=== PATIENT | female | born 1940 | race Asian ===

== ENCOUNTER 2023-10-12 09:44 | Emergency (ER) | payer OTHER, BC ==
[~2023-10-12] VITALS: Ht 152.4 cm; Wt 61.2 kg
[~2023-10-12 09:44] MED LIST: AMLO5TAB4 PO; DEXL60CA6 PO; DONE5TAB33 PO; HYDR25TA86 PO; LINA145C PO; LIPA1CAP23 PO; OLME40TA18 PO; SIMV10TA97 PO
[2023-10-12 09:45] VITALS: BP_SYST 134; PULSE 74; RESP 17; TEMP 98.2; O2SAT 96
[2023-10-12 10:37] LABS: BASOPHILS % (AUTO) 0.3 % (0.0-2.0); EOSINOPHILS # (AUTO) 0.1 K/uL (0.0-0.4); EOSINOPHILS % (AUTO) 0.9 % (0.0-4.0); HEMATOCRIT 35.1 % (36-48); HEMOGLOBIN 11.7 g/dL (12.0-16.0); LYMPHOCYTES # (AUTO) 1.3 K/uL (1.0-5.5); LYMPHOCYTES % (AUTO) 18.2 % (20.5-51.5); MEAN CORPUSCULAR HEMOGLOBIN 30 pg (27-31); MEAN CORPUSCULAR HGB CONC 33 % (32-36); MEAN CORPUSCULAR VOLUME 91 fL (79.0-98.0); MONOCYTES # (AUTO) 0.6 K/uL (0.0-1.0); MONOCYTES % (AUTO) 8.9 % (1.7-9.3); NEUTROPHILS % (AUTO) 71.7 % (40.0-70.0); PLATELET COUNT (AUTO) 270 K/uL (130-430); RED BLOOD CELL COUNT(AUTO) 3.88 MIL/uL (4.2-6.2); RED CELL DISTRIBUTION WIDTH 13.7 % (9.0-15.0)
[2023-10-12 10:53] LABS: INR 0.9 (0.8-1.2); PROTHROMBIN TIME 9.5 SECS (9.5-12.5)
[2023-10-12] MEDS ORDERED: AMLO5TAB4 PO (11:10)
[2023-10-12 11:11] LABS: ALANINE AMINOTRANSFERASE 20 U/L (12-78); ALBUMIN 3.5 g/dL (3.4-4.8); AMYLASE 63 U/L (0-100); ANION GAP 9 (5-15); ASPARTATE AMINOTRANSFERASE 16 U/L (10-37); BILIRUBIN,DIRECT 0.1 mg/dL (0.0-0.3); CALCIUM 8.9 mg/dL (8.4-11.0); CARBON DIOXIDE 25 mmol/L (23-29); CHLORIDE 105 mmol/L (98-107); CREATININE 0.83 mg/dL (0.55-1.30); GLUCOSE 110 mg/dL (74-106); LIPASE 44 U/L (16-77); POTASSIUM 3.5 mmol/L (3.5-5.1); SODIUM SERUM 139 mmol/L (136-145); TOTAL BILIRUBIN 0.4 mg/dL (0.0-1.0); TOTAL PROTEIN, SERUM 6.8 g/dL (6.4-8.3); UREA NITROGEN, BLOOD 25 mg/dL (8-21)
[2023-10-12] MEDS ORDERED: HYG25 PO (11:15)
[2023-10-12] MEDS ORDERED: OMEP-268 PO (12:11)
[2023-10-12 12:35] VITALS: BP_SYST 141; PULSE 78; RESP 14; O2SAT 99
== END 2023-10-12 12:39 | disposition home or self-care (01) ==
LOC: SED 09:44
DX: K62.5 Hemorrhage of anus and rectum (principal); R10.13 Epigastric pain; I10 Essential (primary) hypertension; Z79.899 Other long term (current) drug therapy; Z79.2 Long term (current) use of antibiotics
CPT/HCPCS: 36415; 80048; 80076; 82150; 83605; 83690; 85025; 85610; 85730; 86886; 86900; 86901; 93005; 99284

== ENCOUNTER 2023-10-17 10:20 | Emergency (ER) | payer OTHER, BC ==
[~2023-10-17] VITALS: Ht 152.4 cm; Wt 61.2 kg
[~2023-10-17 10:20] MED LIST changes: +HYG25 PO; +OMEP-268 PO
[2023-10-17 10:24] VITALS: BP_SYST 138; PULSE 73; RESP 16; TEMP 97.9; O2SAT 96
[2023-10-17 10:53] LABS: BASOPHILS % (AUTO) 0.7 % (0.0-2.0); EOSINOPHILS # (AUTO) 0.1 K/uL (0.0-0.4); EOSINOPHILS % (AUTO) 0.9 % (0.0-4.0); HEMATOCRIT 33.4 % (36-48); HEMOGLOBIN 11.1 g/dL (12.0-16.0); LYMPHOCYTES # (AUTO) 1.7 K/uL (1.0-5.5); LYMPHOCYTES % (AUTO) 26.1 % (20.5-51.5); MEAN CORPUSCULAR HEMOGLOBIN 30 pg (27-31); MEAN CORPUSCULAR HGB CONC 33 % (32-36); MEAN CORPUSCULAR VOLUME 91 fL (79.0-98.0); MONOCYTES # (AUTO) 0.6 K/uL (0.0-1.0); MONOCYTES % (AUTO) 9.7 % (1.7-9.3); NEUTROPHILS % (AUTO) 62.6 % (40.0-70.0); PLATELET COUNT (AUTO) 315 K/uL (130-430); RED BLOOD CELL COUNT(AUTO) 3.68 MIL/uL (4.2-6.2); RED CELL DISTRIBUTION WIDTH 13.4 % (9.0-15.0); WHITE BLOOD COUNT (AUTO) 6.4 K/uL (4.8-10.8)
[2023-10-17 11:13] LABS: ALANINE AMINOTRANSFERASE 22 U/L (12-78); ALBUMIN 3.5 g/dL (3.4-4.8); AMYLASE 59 U/L (0-100); ANION GAP 11 (5-15); ASPARTATE AMINOTRANSFERASE 18 U/L (10-37); BILIRUBIN,DIRECT 0.1 mg/dL (0.0-0.3); CALCIUM 8.9 mg/dL (8.4-11.0); CARBON DIOXIDE 25 mmol/L (23-29); CHLORIDE 100 mmol/L (98-107); CREATININE 1.04 mg/dL (0.55-1.30); GLUCOSE 142 mg/dL (74-106); INR 0.9 (0.8-1.2); LIPASE 49 U/L (16-77); POTASSIUM 3.8 mmol/L (3.5-5.1); PROTHROMBIN TIME 9.3 SECS (9.5-12.5); SODIUM SERUM 136 mmol/L (136-145); TOTAL BILIRUBIN 0.3 mg/dL (0.0-1.0); TOTAL PROTEIN, SERUM 6.8 g/dL (6.4-8.3); UREA NITROGEN, BLOOD 21 mg/dL (8-21)
[2023-10-17] MEDS ORDERED: OMEP20CA15 PO (11:24)
[2023-10-17 11:33] VITALS: BP_SYST 122; PULSE 69; RESP 16; TEMP 98; O2SAT 97
== END 2023-10-17 11:30 | disposition home or self-care (01) ==
LOC: SED 10:20
DX: K29.71 Gastritis, unspecified, with bleeding (principal); I10 Essential (primary) hypertension
CPT/HCPCS: 36415; 80048; 80076; 82150; 83690; 85025; 85610; 85730; 86886; 86900; 86901; 99283